=== PATIENT | female | born 1985 | race Caucasian/White ===

== ENCOUNTER 2016-05-28 11:02 | Emergency (ER) | payer MEDICAID ==
--- NOTE | 2016-05-28 13:49 | Emergency Department Record ---
History of Present Illness - General Chief complaint: Lower Extremity Pain Stated complaint: LT FOOT SWOLLEN/PAIN Time Seen by Provider: 05/28/16 11:55 Source: Patient Mode of Arrival: Ambulatory Limitations: No limitations - History of Present Illness Initial comments: pt fell down steps earlier thids week injuring l foot. MD Complaint: Extremity pain, Extremity swelling Onset/Timin -: Days(s) Location: Left, Foot History of Same: No Radiation: None Severity scale (1-10): 1 Quality: Aching Consistency: Constant Improves with: Nothing Worsens with: Walking, Weight bearing Associated Symptoms: Denies other symptoms - Related Data Previous Rx's Medication Instructions Recorded Hydrocodone/Acetaminophen [[place] 1 tab PO Q6H PRN #10 tab 05/28/16 5mg/325mg] Ibuprofen [Motrin 600Mg] 600 mg PO Q6H #20 tablet 05/28/16 Allergies Allergy/AdvReac Type Severity Reaction Status Date / Time latex Allergy skin Unverified 02/23/16 13:52 irritation Travel Screening - Travel/Exposure Within Last 30 Days Have you traveled within the last 30 days?: No - Travel/Exposure Within Last Year Have you traveled outside the [place] in the last year?: No - Additonal Travel Details Have you been exposed to anyone with a communicable illness?: No - Travel Symptoms Symptom Screening: None Review of Systems Reviewed: No additional complaints except as noted below Constitutional: Reports: As per HPI. Denies: Chills, Fever, Malaise, Night sweats, Weakness, Weight change Eyes: Reports: As per HPI. Denies: Eye discharge, Eye pain, Photophobia, Vision change ENT: Reports: As per HPI. Denies: Congestion, Dental pain, Ear pain, Epistaxis , Hearing loss, Throat pain Respiratory: Reports: As per HPI. Denies: Cough, Dyspnea, Hemoptysis, Stridor, Wheezes Cardiovascular: Reports: As per HPI. Denies: Arrhythmia, Chest pain, Dyspnea on exertion, Edema, Murmurs, Orthopnea, Palpitations, Paroxysmal nocturnal dyspnea, Rheumatic Fever, Syncope Endocrine: Reports: As per HPI. Denies: Fatigue, Heat or cold intolerance, Polydipsia, Polyuria Gastrointestinal: Reports: As per HPI. Denies: Abdominal pain, Constipation, Diarrhea, Hematemesis, Hematochezia, Melena, Nausea, Vomiting Genitourinary: Reports: As per HPI. Denies: Abnormal menses, Discharge, Dyspareunia, Dysuria, Frequency, Hematuria, Incontinence, Retention, Urgency Musculoskeletal: Reports: As per HPI. Denies: Arthralgia, Back pain, Gout, Joint swelling, Myalgia, Neck pain Skin: Reports: As per HPI. Denies: Bruising, Change in color, Change in hair/ nails, Lesions, Pruritus, Rash Neurological: Reports: As per HPI. Denies: Abnormal gait, Confusion, Headache, Numbness, Paresthesias, Seizure, Tingling, Tremors, Vertigo, Weakness Psychiatric: Reports: As per HPI. Denies: Anxiety, Auditory hallucinations, Depression, Homicidal thoughts, Suicidal thoughts, Visual hallucinations Hematological/Lymphatic: Reports: As per HPI. Denies: Anemia, Blood Clots, Easy bleeding, Easy bruising, Swollen glands Past Medical History - SOCIAL HISTORY Smoking Status: Never smoker Alcohol Use Comment: every night a glass or more of wine Drug Use: None - RESPIRATORY Hx Respiratory Disorders: No - CARDIOVASCULAR Hx Cardio Disorders: No - NEURO Hx Neuro Disorders: No - GI Hx GI Disorders: No - Hx Genitourinary Disorders: No - ENDOCRINE Hx Endocrine Disorders: No Hx Diabetes: No Hx Thyroid Disease: No - MUSCULOSKELETAL Hx Musculoskeletal Disorders: No - PSYCH Hx Psych Problems: No - HEMATOLOGY/ONCOLOGY Hx Hematology/Oncology Disorders: No Family Medical History Any Significant Family History?: Yes Hx Diabetes: Grandparents Hx Resp Disorders: Father Physical Exam - General General Appearance: Alert, Oriented x3, Cooperative, Mild distress - Head Head exam: Normal inspection - Eye Eye exam: Normal appearance, PERRL, EOMI Pupils: Normal accommodation - ENT ENT exam: Normal exam, Mucous membranes moist, Normal external ear exam, Normal orophraynx Ear exam: Normal external inspection. negative: External canal tenderness Nasal Exam: Normal inspection. negative: Discharge, Sinus tenderness Mouth exam: Normal external inspection, Tongue normal Teeth exam: Normal inspection. negative: Dental caries Throat exam: Normal inspection. negative: Tonsillar erythema, Tonsillar exudate - Neck Neck exam: Normal inspection, Full ROM. negative: Tenderness - Respiratory Respiratory exam: Normal lung sounds bilaterally. negative: Respiratory distress - Cardiovascular Cardiovascular Exam: Regular rate, Normal rhythm, Normal heart sounds - GI/Abdominal GI/Abdominal exam: Soft, Normal bowel sounds. negative: Tenderness - Rectal Rectal exam: Deferred - exam: Deferred - Extremities Extremities exam: Full ROM, Normal capillary refill, Tenderness Image of Feet: 1 - swelling, ecchymosis, tender - Back Back exam: Reports: Normal inspection, Full ROM. Denies: Muscle spasm, Rash noted, Tenderness - Neurological Neurological exam: Alert, CN II-XII intact, Normal gait, Oriented X3 - Psychiatric Psychiatric exam: Normal affect, Normal mood - Skin Skin exam: Dry, Intact, Normal color, Warm Course Vital Signs 05/28/16 11:18 Temperature 98.5 F Pulse Rate 96 H Respiratory 18 Rate Blood Pressure 125/76 Pulse Ox 98 Disposition Disposition: Discharge Clinical Impression: Foot fracture, left Qualifiers: Encounter type: initial encounter Fracture type: closed Qualified Code(s): S92.902A - Unspecified fracture of left foot, initial encounter for closed fracture Lisfranc's sprain Qualifiers: Encounter type: initial encounter Laterality: left Qualified Code(s): S93.622A - Sprain of tarsometatarsal ligament of left foot, initial encounter Disposition: Home, Self-Care Condition: (1) Good Instructions: Foot Fracture in Adults (ED) Additional Instructions: ice and elevation. follow up with dr garza. return sooner if worse Prescriptions: Ibuprofen [Motrin 600Mg] 600 mg PO Q6H #20 tablet Hydrocodone/Acetaminophen [[place] 5mg/325mg] 1 tab PO Q6H PRN #10 tab PRN Reason: Pain - General Referrals: ROSELINE GARZA [DOCTOR OF OSTEOPATH] - [facility] [Provider Group] Forms: Patient Portal Access
--- NOTE | 2016-05-31 13:49 | RADIOLOGY REPORT ---
EXAM: LEFT FOOT, THREE VIEWS HISTORY: LEFT FOOT PAIN THREE DAYS POST INJURY. TECHNIQUE: Three views of the left foot were obtained. Comparison: None. Encounter: Initial. FINDINGS: There is normal bone mineralization. There is a tiny calcific density projecting near the dorsal margin of either the first or second metatarsal bases as seen on the lateral view. There is mild associated soft tissue swelling and a small avulsion type fracture cannot be excluded. The alignment of the metatarsal bases with their corresponding tarsal bones is within the limits of normal. The articular relations are maintained. IMPRESSION: ON THE LATERAL VIEW THERE IS A TINY CALCIFIC DENSITY PROJECTING NEAR THE DORSAL MARGIN OF EITHER THE FIRST OR SECOND METATARSAL BASE WITH MILD SOFT TISSUE SWELLING. A SMALL AVULSION FRACTURE AT THIS LEVEL CANNOT BE EXCLUDED. LISFRANC LIGAMENT INJURY WOULD BE DIFFICULT TO EXCLUDE. THE EXAMINATION IS OTHERWISE UNREMARKABLE. JOB NUMBER: [id number] MTDD
== END 2016-05-28 14:38 | disposition home or self-care (01) ==
LOC: ER 11:02 → MERGE 11:02 → ER 14:38
DX: S92.902A Unspecified fracture of left foot, initial encounter for closed fracture (principal); S93.622A Sprain of tarsometatarsal ligament of left foot, initial encounter; W10.9XXA Fall (on) (from) unspecified stairs and steps, initial encounter
CPT/HCPCS: 99283